=== PATIENT | male | born 1980 | race Two or more races ===

== ENCOUNTER 2019-09-01 13:46 | Emergency (ER) | payer SELFPAY ==
[~2019-09-01] VITALS: Ht 172.7 cm; Wt 68.0 kg
--- NOTE | 2019-09-01 13:50 | NUR ---
ED Nurse Note: Patient walked in c/o pressure pain in the left chest with chills/ sweating x 1hr; reports no injury or rash. Reports no use of alchol or drug. Pt is A&O x4, V/S stable with no s/s of acute distress noted at this time. PA at bedside evaluating the pt. Will continue to monitor.
[2019-09-01 14:07] VITALS: BP 136/73
--- NOTE | 2019-09-01 14:34 | Emergency Room Report ---
History of Present Illness General Chief Complaint: Chest Pain Source: Patient Present Illness HPI 38-year-old male presents to the emergency department currently with 2 out of 10 severity chest pain. Patient reports that he previously was experiencing 8 out of 10 severity left-sided chest pain x1 hour prior to arrival. Patient reports pain is exacerbated upon pushing on the left side of his chest. Patient states that he did have some radiation of the pain down the left arm. Patient denies cough shortness of breath, cough, hemoptysis, dizziness, syncope or palpitations. Patient reports he did feel very shaky during the time at which his symptoms began. He denies past medical history he denies smoking history he denies recent travel. Patient denies drug use he states he is not taking any medications. No other aggravating or relieving factors. Patient reports that his pain has reduced greatly upon arrival at the emergency department. Patient denies previous episodes of similar symptoms in the past. He denies trauma or fall. Denies paresthesias. Allergies: Coded Allergies: No Known Allergies (Unverified , 09/01/19) Patient History Past Medical History: see triage record Past Surgical History: none Pertinent Family History: none Reviewed Nursing Documentation: PMH: Agreed; PSxH: Agreed Nursing Documentation-PMH Past Medical History: No Stated History Review of Systems All Other Systems: negative except mentioned in HPI Physical Exam Vital Signs Date Time Temp Pulse Resp B/P (MAP) Pulse Ox O2 Delivery O2 Flow Rate FiO2 09/01/19 13:50 97.9 88 16 136/73 (94) 99 Room Air Medical Decision Making PA Attestation Dr. Mooney is my supervising Physician whom patient management has been discussed with. Diagnostic Impression: Primary Impression: Acute nonspecific chest pain with low risk of coronary artery disease ER Course 38-year-old male presents to the emergency department currently with 2 out of 10 severity chest pain. Patient reports that he previously was experiencing 8 out of 10 severity left-sided chest pain x1 hour prior to arrival. Patient reports pain is exacerbated upon pushing on the left side of his chest. Patient states that he did have some radiation of the pain down the left arm. Patient denies cough shortness of breath, cough, hemoptysis, dizziness, syncope or palpitations. Patient reports he did feel very shaky during the time at which his symptoms began. He denies past medical history he denies smoking history he denies recent travel. Patient denies drug use he states he is not taking any medications. No other aggravating or relieving factors. Patient reports that his pain has reduced greatly upon arrival at the emergency department. Patient denies previous episodes of similar symptoms in the past. He denies trauma or fall. Denies paresthesias. Ddx considered but are not limited to [place], pneumonia, contusion, costochondritis , PE, ACS, Shoulder strain, Chest wall contusion. aortic dissection. Vital signs: are WNL, pt. is afebrile H&PE are most consistent with low RF CP. ORDERS: - EK bpm NSR with incomplete RBBB -CBC -CMP -Troponin -UDS: CXR: ED INTERVENTIONS: - PT. placed on cardiac monitoring. DISCHARGE: At this time pt. is stable for d/c to home. Will provide printed patient care instructions, and any necessary prescriptions. Care plan and follow up instructions have been discussed with the patient prior to discharge. EKG Diagnostic Results EP Interpretation: Dr. Mooney Rate: normal - 78 Rhythm: NSR ST Segments: no acute changes Other Impression RBBB- incomplete Chest X-Ray Diagnostic Results Chest X-Ray Diagnostic Results : Chest X-Ray Ordered: Yes # of Views/Limited/Complete: 1 View Indication: Chest Pain EP Interpretation: Yes MILAGROS Xray: Interpretation reviewed, by supervising MD, and agrees with findings. Interpretation: no consolidation, no pneumothorax, no acute cardiopulmonary disease Impression: No acute disease Electronically Signed by: Tricia Chamorro PA-C Last Vital Signs Date Time Temp Pulse Resp B/P (MAP) Pulse Ox O2 Delivery O2 Flow Rate FiO2 09/01/19 14:07 97.9 88 16 136/73 99 Room Air Disposition: HOME, SELF-CARE Scripts Ibuprofen* (MOTRIN*) 600 Mg Tablet 600 MG ORAL THREE TIMES A DAY, #30 TAB 0 Refills Prov: Tricia Chamorro 09/01/19 Referrals: [facility] Rissa Sharma Comp. [facility] Patient Instructions: Nonspecific Chest Pain Additional Instructions: Take medications as directed. Follow up with a Primary Care Provider in 3-5 days, even if your symptoms have resolved. --Please review list of primary care clinics, if you do not already have a primary care provider Return sooner to ED if new symptoms occur, or current symptoms become worse. - Please note that this Emergency Department Report was dictated using [employer] analyst technology software, occasionally this can lead to erroneous entry secondary to interpretation by the dictation equipment. Tricia Chamorro Sep 01, 2019 14:34
--- NOTE | 2019-09-01 14:35 | NUR ---
ED Nurse Note: Urine and Blood send down to the lab.
[2019-09-01 14:49] LABS: BASOPHILS % (AUTO) 0.9 % (0.0-2.0); EOSINOPHILS % (AUTO) 3.4 % (0.0-3.0); HEMATOCRIT 49.6 % (42.0-52.0); HEMOGLOBIN 17.1 G/DL (14.2-18.0); LYMPHOCYTES % (AUTO) 21.7 % (20.0-45.0); MEAN CORPUSCULAR VOLUME 85 FL (80-99); MONOCYTES % (AUTO) 7.3 % (1.0-10.0); NEUTROPHILS % (AUTO) 66.7 % (45.0-75.0); PLATELET COUNT 243 K/UL (150-450); RED BLOOD COUNT 5.86 M/UL (4.70-6.10); RED CELL DISTRIBUTION WIDTH 11.6 % (11.6-14.8); WHITE BLOOD COUNT 6.5 K/UL (4.8-10.8)
[2019-09-01 15:09] LABS: ANION GAP 8 mmol/L (5-15); BLOOD UREA NITROGEN 25 mg/dL (7-18); CALCIUM 9.3 MG/DL (8.5-10.1); CARBON DIOXIDE 28 MMOL/L (21-32); CHLORIDE 103 MMOL/L (98-107); POTASSIUM 3.3 MMOL/L (3.5-5.1); SODIUM 139 MMOL/L (136-145)
[2019-09-01 15:13] LABS: ALANINE AMINOTRANSFERASE 30 U/L (12-78); ALBUMIN 4.1 G/DL (3.4-5.0); ALBUMIN/GLOBULIN RATIO 1.1 (1.0-2.7); ALKALINE PHOSPHATASE 102 U/L (46-116); ASPARTATE AMINO TRANSFERASE 13 U/L (15-37); BILIRUBIN,TOTAL 0.5 MG/DL (0.2-1.0); CREATINE KINASE 121 U/L (26-308)
--- NOTE | 2019-09-01 15:33 | Diagnostic Imaging Report ---
EXAM: XR Chest, 1 View CLINICAL HISTORY: CP TECHNIQUE: Frontal view of the chest. COMPARISON: None FINDINGS: Hardware: None. Lungs/pleura: Normal. No focal consolidation. No pleural effusion or pneumothorax. Heart/mediastinum: Normal. No cardiomegaly. Soft tissues: Unremarkable. Bones: No acute fracture. Upper abdomen: Normal. IMPRESSION: No acute disease identified.
[2019-09-01 16:07] VITALS: BP 124/65
[2019-09-01] MEDS ORDERED: Ketorolac 30mg Inj IV ONE (16:15)
[2019-09-01] MEDS ORDERED: IBUPROFEN600 MG ORAL (16:18)
[2019-09-01 17:07] VITALS: BP 129/69
[2019-09-01 17:08] VITALS: BP 121/62
--- NOTE | 2019-09-01 17:08 | NUR ---
ER DISCHARGE NOTE: Patient is cleared to be discharged per ERMD, pt is aox4, on room air, with stable vital signs. pt was given dc and prescription instructions, pt was able to verbalize understanding, pt id band and iv site removed without complications. pt is able to ambulate with steady gait. pt took all belongings.
== END 2019-09-01 17:12 | disposition home or self-care (01) ==
LOC: EMR 14:40
DX: R07.9 Chest pain, unspecified (principal)
CPT/HCPCS: 36415; 71045; 80053; 80307; 82550; 84484; 85025; 93005; 96374; 99284; J1885; J8499